=== PATIENT | female | born 1975 | race Caucasian/White ===

== ENCOUNTER 2017-08-15 09:52 | Emergency (ER) | payer OTHER, MEDICARE ==
[~2017-08-15] VITALS: Ht 157.5 cm; Wt 80.0 kg
[~2017-08-15 09:52] MED LIST: AMIT50 PO; BACL10TA PO; CLON.5 PO; DULO30 PO; GABA300C3 PO; HYDR25 PO; LORA10TA PO; MELO15 PO; ONDA4 PO; PERC10TA27 PO; PERM5CRE TOP; PRED20 PO; PROM25SU8 PO; PROP80TA PO; SUMA100T2 PO; TIZA4 PO; TRIA.1%T TOP; ZOLP10TA3 PO
[2017-08-15 10:01] VITALS: BP 140/84; PULSE 101; RESP 20; TEMP 97.9; O2SAT 100
[2017-08-15] MEDS ORDERED: MORPHINE SULFATE 4 MG/ML INJ IV PUSH ONE ×2 (10:30→13:30)
[2017-08-15] MEDS ORDERED: TRAZ300T2 PO (10:57)
[2017-08-15] MEDS ORDERED: IMIT100T PO (10:57)
[2017-08-15] MEDS ORDERED: CLAR10TA7 PO (10:57)
[2017-08-15] MEDS ORDERED: ZOFR4TAB PO (10:57)
[2017-08-15] MEDS ORDERED: MELA5 PO (10:57)
[2017-08-15] MEDS ORDERED: CYMB30CA PO (10:57)
[2017-08-15] MEDS ORDERED: TIZA4 PO (10:57)
[2017-08-15] MEDS ORDERED: BUPR150XL PO (10:57)
[2017-08-15] MEDS ORDERED: HYDR-3133 PO (10:57)
[2017-08-15] MEDS ORDERED: NEUR600T PO (10:57)
[2017-08-15] MEDS ORDERED: TRIA.1%T TOPICAL (10:57)
[2017-08-15] MEDS ORDERED: AMIT100T2 PO (10:57)
[2017-08-15 11:29] LABS: AUTOMATED NEUTROPHIL # 8.2 TH/MM3 (1.8-7.7); BASOPHIL % 0.2 % (0.0-2.0); EOSINOPHIL % 0.3 % (0.0-4.0); HEMO FLAGS DIFF FINAL; LYMPH % 10.8 % (9.0-44.0); MEAN CELL VOLUME 79.1 FL (80.0-100.0); MEAN CORPUSCULAR HGB CONC 31.6 % (32.0-36.0); MONO % 3.3 % (0.0-8.0); NEUT % 85.4 % (16.0-70.0); PLATELET COUNT 440 TH/MM3 (150-450); RED BLOOD COUNT 3.79 MIL/MM3 (4.00-5.30); RED CELL DISTRIBUTION WIDTH 17.8 % (11.6-17.2); WHITE BLOOD COUNT 9.6 TH/MM3 (4.0-11.0)
[2017-08-15 11:51] LABS: BICARBONATE 26.5 MEQ/L (21.0-32.0)
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
[2017-08-15] MEDS ORDERED: IOHEXOL 350 MG/ML 10 ML VIAL (for RAD DIAG) IVCONTRAST ONE (12:36)
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
[2017-08-15 13:35] VITALS: BP 131/65; PULSE 93; RESP 16; O2SAT 97
[2017-08-15 13:53] VITALS: RESP 16
== END 2017-08-15 14:08 | disposition home or self-care (01) ==
LOC: NEPC 09:52
DX: S09.90XA Unspecified injury of head, initial encounter (principal); M25.531 Pain in right wrist; M54.2 Cervicalgia; F41.9 Anxiety disorder, unspecified; D64.9 Anemia, unspecified; V43.53XA Car driver injured in collision with pick-up truck in traffic accident, initial encounter; Z79.899 Other long term (current) drug therapy
CPT/HCPCS: 70450; 71260; 72125; 73110; 73130; 74177; 80048; 85025; 96374; 96376; 99285; J2270; Q9967